=== PATIENT | male | born 1985 | race Two or more races ===

== ENCOUNTER 2022-02-21 05:41 | Emergency (ER) | payer OTHER ==
[~2022-02-21] VITALS: Ht 177.8 cm; Wt 127.0 kg
--- NOTE | 2022-02-21 07:15 | NUR ---
HAND OFF [facility] PT AWAKE AND ALERT NO SOB
[2022-02-21] MEDS ORDERED: KETOROLAC TROMETHAMINE INJ 30 MG/ML VIAL IM ONE (08:00)
--- NOTE | 2022-02-21 08:00 | NUR ---
C/O PAIN ON RT [facility]
[2022-02-21] MEDS ORDERED: KETOROLAC TROMETHAMINE INJ 30 MG/ML VIAL ONE (08:27)
--- NOTE | 2022-02-21 08:34 | NUR ---
TORADOL GIVEN LEFT DELTOID IM, LITO WELL
[2022-02-21] MEDS ORDERED: CYCL5TAB PO (09:00)
[2022-02-21] MEDS ORDERED: KETO10TA2 PO (09:00)
--- NOTE | 2022-02-21 09:10 | NUR ---
Patient discharged to home in stable condition. Written and verbal after care instructions given. Patient verbalizes understanding of instruction.
[2022-02-21 09:19] VITALS: BP 135/86
== END 2022-02-21 09:24 | disposition home or self-care (01) ==
LOC: ER 05:44
DX: S13.4XXA Sprain of ligaments of cervical spine, initial encounter (principal); S80.12XA Contusion of left lower leg, initial encounter; M24.211 Disorder of ligament, right shoulder; M24.212 Disorder of ligament, left shoulder; F32.A Depression, unspecified; Z79.899 Other long term (current) drug therapy; V89.2XXA Person injured in unspecified motor-vehicle accident, traffic, initial encounter; Y93.89 Activity, other specified; Y92.89 Other specified places as the place of occurrence of the external cause; Y99.8 Other external cause status
CPT/HCPCS: 99283; 96372; 73590; J1885